=== PATIENT | female | born 1995 | race Caucasian/White ===

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

== ENCOUNTER 2017-01-18 14:51 | Emergency (ER) | payer OTHER ==
[2017-01-18] MEDS ORDERED: HYDROCODONE/ACETAMINOPHEN 5-325 MG TABLET PO ONE (15:58)
[2017-01-18] MEDS ORDERED: IBUPROFEN 600 MG TABLET PO ONE (15:58)
--- NOTE | 2017-01-18 16:30 | ER Document Report ---
ED GI/ - General Chief Complaint: Flank Pain Stated Complaint: FLANK PAIN Time Seen by Provider: 01/18/17 15:55 Notes: The patient is a 21-year-old female, PMHx scoliosis and chronic back pain, who presents with worsening bilateral flank pain, worse on the right for the past few weeks. She was diagnosed with pyelonephritis last month and finished her Abx course, but the pain never resolved. Patient is also having dysuria and is taking AZO for the dysuria. She denies nausea, vomiting, fevers, hematuria, vaginal discharge or bleeding. TRAVEL OUTSIDE OF THE [place] IN LAST 30 DAYS: No - Related Data Allergies/Adverse Reactions: No Known Allergies Allergy (Verified 01/18/17 15:03) Past Medical History - General Information source: Patient - Social History Smoking Status: Never Smoker Chew tobacco use (# tins/day): No Frequency of alcohol use: None Drug Abuse: None Family History: Reviewed & Not Pertinent Pulmonary Medical History: Reports: Hx Asthma Renal/ Medical History: Denies: Hx Peritoneal Dialysis GI Medical History: Reports: Hx Gastroesophageal Reflux Disease Musculoskeltal Medical History: Reports Hx Musculoskeletal Trauma - Right foot fracture Traumatic Medical History: Reports: Hx Fractures - Right foot - Immunizations Immunizations up to date: Yes Hx Diphtheria, Pertussis, Tetanus Vaccination: Yes Review of Systems - Review of Systems Notes: REVIEW OF SYSTEMS: CONSTITUTIONAL: -fevers, -chills EENT: -eye pain, -difficulty swallowing, -nasal congestion CARDIOVASCULAR:-chest pain, -syncope. RESPIRATORY: -cough, -SOB GASTROINTESTINAL: -abdominal pain, - nausea, -vomiting, -diarrhea GENITOURINARY: +dysuria, -hematuria MUSCULOSKELETAL: +back pain, -neck pain SKIN: -rash or skin lesions. HEMATOLOGIC: -easy bruising or bleeding. LYMPHATIC: -swollen, enlarged glands. NEUROLOGICAL: -altered mental status or loss of consciousness, -headache, - neurologic symptoms PSYCHIATRIC: -anxiety, -depression. ALL OTHER SYSTEMS REVIEWED AND NEGATIVE. Physical Exam - Vital signs Vitals: Temp Pulse Resp BP Pulse Ox 98.5 F 101 H 20 117/74 97 01/18/17 15:03 01/18/17 15:03 01/18/17 15:03 01/18/17 15:03 01/18/17 15:03 - Notes Notes: PHYSICAL EXAMINATION: GENERAL: Well-appearing, well-nourished and in no acute distress. HEAD: Atraumatic, normocephalic. EYES: Pupils equal round and reactive to light, extraocular movements intact, sclera anicteric, conjunctiva are normal. ENT: nares patent, oropharynx clear without exudates. Moist mucous membranes. NECK: Normal range of motion, supple without lymphadenopathy LUNGS: Breath sounds clear to auscultation bilaterally and equal. No wheezes rales or rhonchi. HEART: Regular rate and rhythm without murmurs ABDOMEN: Soft, nontender, normoactive bowel sounds. No guarding, no rebound. No masses appreciated. EXTREMITIES: Normal range of motion, no pitting or edema. No cyanosis. BACK: B/L CVA tenderness, no midline back pain NEUROLOGICAL: Cranial nerves grossly intact. Normal speech, normal gait. Normal sensory and motor exams. PSYCH: Normal mood, normal affect. SKIN: Warm, Dry, normal turgor, no rashes or lesions noted. Course - Re-evaluation Re-evalutation: Patient appears well. Her urine has positive nitrates but only 1 WBC. With her dysuria and CVA tenderness, provided her with a prescription for Keflex for possible pyelonephritis. However, told her to take NSAIDs due to high suspicion for muscle strain due to her scoliosis. If the NSAIDs did not help then she may take the Keflex. Given strict return precautions and she understands. - Vital Signs Vital signs: Temp Pulse Resp BP Pulse Ox 97.5 F 63 20 131/66 H 100 01/18/17 17:32 01/18/17 17:32 01/18/17 17:32 01/18/17 17:32 01/18/17 17:32 - Laboratory Laboratory results interpreted by me: 01/18/17 15:58 Urine Protein 100 H Urine Glucose (UA) 50 H Urine Nitrite POSITIVE H Urine Urobilinogen 2.0 H Discharge - Discharge Clinical Impression: Flank pain Condition: Stable Disposition: HOME, SELF-CARE Additional Instructions: Flank Pain We weren't able to prove an exact cause for your flank pain. Pain in the flank can be caused by a muscle strain or spasm. Sometimes a kidney stone causes pain, but can't be found on our tests. Infection in the kidney should be evident on a urine test. Early shingles can occasionally cause flank pain, without the rash that proves the diagnosis. On rare occasions, disease of the pancreas, aorta, spleen, or colon can create pain in the flank. At this time, there's no evidence of a dangerous condition, and it seems safe for you to be at home. If the pain goes away and does not come back, no further testing will be needed. If pain persists, or becomes more severe, we may need to repeat some tests or order additional new testing. Blood in the urine, urgency to urinate frequently, and pain that radiates to the groin can indicate a kidney stone. Fever may mean that the pain is due to infection, either of the kidney or the colon (diverticulitis). If your pain is early shingles, you should develop an eruption of blisters in the painful area within a few days. Call the doctor or return if you have pain that is spreading or becoming more severe, pain that does not resolve with time, fever, or any other new symptoms. Pyelonephritis Your evaluation shows evidence of pyelonephritis. This is an infection in the kidney. Typical symptoms are fever, pain in the flank, pain on urination, and frequent urination. Many cases of pyelonephritis can be treated at home. Hospital care may be necessary for patients who are very ill, or elderly or . Pyelonephritis is treated with antibiotics. Be sure to take all the medication as prescribed. Drink plenty of liquids (about three quarts per day) . You may take acetaminophen for fever. You should feel significantly improved within two days. You should have a recheck of your urine in about one week to insure that the infection is gone. Return for a re-examination if your symptoms worsen in any way -- such as high fever, shaking chills, severe weakness or dizziness, severe pain, or inability to pass your urine. Prescriptions: Cephalexin Monohydrate [Keflex 500 mg Capsule] 500 mg PO Q8H 10 Days capsule Naproxen [Naprosyn 250 mg Tablet] 500 mg PO BID PRN #30 tablet PRN Reason: Referrals: RENATE ANTONIO MD [Primary Care Provider] - Follow up as needed
[2017-01-18 16:53] LABS: APPEARANCE,URINE CLOUDY; BILIRUBIN,URINE NEGATIVE (NEGATIVE); GLUCOSE, URINE 50 mg/dL (NEGATIVE); KETONES,URINE NEGATIVE (NEGATIVE); LEUKOCYTE ESTERASE,URINE NEGATIVE (NEGATIVE); NITRITE,URINE POSITIVE (NEGATIVE); PROTEIN,URINE 100 mg/dL (NEGATIVE); URINE SPECIFIC GRAVITY 1.032
[2017-01-18 17:33] VITALS: BP 131/66
== END 2017-01-18 17:36 | disposition home or self-care (01) ==
LOC: ER 14:51
DX: R10.9 Unspecified abdominal pain (principal); R30.0 Dysuria; J45.909 Unspecified asthma, uncomplicated; M41.9 Scoliosis, unspecified; Z87.440 Personal history of urinary (tract) infections
CPT/HCPCS: 81001; 81025; 99284

== ENCOUNTER 2017-07-27 13:33 | Emergency (ER) | payer OTHER ==
[2017-07-27] MEDS ORDERED: LIDOCAINE 1% INJ-PF (10 MG/ML) 30 ML SDV INJ ONE (15:06)
[2017-07-27] MEDS ORDERED: CEFTRIAXONE INJ 250 MG VIAL IM ONE (15:06)
[2017-07-27] MEDS ORDERED: AZITHROMYCIN 250 MG TABLET PO ONE (15:06)
[2017-07-27 15:21] LABS: APPEARANCE,URINE SLIGHTLY-CLOUDY; BILIRUBIN,URINE NEGATIVE (NEGATIVE); COLOR,URINE YELLOW; GLUCOSE, URINE NEGATIVE (NEGATIVE); KETONES,URINE NEGATIVE (NEGATIVE); LEUKOCYTE ESTERASE,URINE SMALL (NEGATIVE); NITRITE,URINE NEGATIVE (NEGATIVE); PROTEIN,URINE NEGATIVE (NEGATIVE); URINE SPECIFIC GRAVITY 1.025; UROBILINOGEN,URINE NEGATIVE mg/dL (<2.0)
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
[2017-07-27 15:36] LABS: T.VAGINALIS (WET MOUNT) NO TRICHOMONAS SEEN; WBCS (WET MOUNT) RARE WBCS SEEN; YEAST (WET MOUNT) NO YEAST SEEN
--- NOTE | 2017-07-27 15:53 | ER Document Report ---
ED GI/ - General Chief Complaint: STD Exposure Stated Complaint: STD CHECK Time Seen by Provider: 07/27/17 14:19 Mode of Arrival: Ambulatory Information source: Patient TRAVEL OUTSIDE OF THE [place] IN LAST 30 DAYS: No - HPI Patient complains to provider of: Vaginal discharge Onset: Yesterday - Related Data Allergies/Adverse Reactions: No Known Allergies Allergy (Verified 07/27/17 13:36) Past Medical History - Social History Smoking Status: Unknown if Ever Smoked Chew tobacco use (# tins/day): No Frequency of alcohol use: None Family History: Reviewed & Not Pertinent Patient has suicidal ideation: No Patient has homicidal ideation: No Pulmonary Medical History: Reports: Hx Asthma Renal/ Medical History: Denies: Hx Peritoneal Dialysis GI Medical History: Reports: Hx Gastroesophageal Reflux Disease Musculoskeltal Medical History: Reports Hx Musculoskeletal Trauma - Right foot fracture Traumatic Medical History: Reports: Hx Fractures - Right foot - Immunizations Immunizations up to date: Yes Hx Diphtheria, Pertussis, Tetanus Vaccination: Yes Physical Exam - Vital signs Vitals: Temp Pulse Resp BP Pulse Ox 98.1 F 70 18 124/72 99 07/27/17 13:40 07/27/17 13:40 07/27/17 13:40 07/27/17 13:40 07/27/17 13:40 Course - Vital Signs Vital signs: Temp Pulse Resp BP Pulse Ox 98.1 F 70 18 124/72 99 07/27/17 13:40 07/27/17 13:40 07/27/17 13:40 07/27/17 13:40 07/27/17 13:40
[2017-07-27 16:16] VITALS: BP 115/67
[2017-07-27 17:00] LABS: CHLAM PCR NOT DETECTED (NOT DETECT); GON PCR NOT DETECTED (NOT DETECT)
== END 2017-07-27 16:17 | disposition home or self-care (01) ==
LOC: ER 13:33
DX: N89.8 Other specified noninflammatory disorders of vagina (principal); Z20.2 Contact with and (suspected) exposure to infections with a predominantly sexual mode of transmission; J45.909 Unspecified asthma, uncomplicated; R10.819 Abdominal tenderness, unspecified site; R03.0 Elevated blood-pressure reading, without diagnosis of hypertension
CPT/HCPCS: 99283; 96372; 87210; 81025; 81001; 87491; 87591; J3490; J0696

== ENCOUNTER 2017-10-12 22:14 | Emergency (ER) | payer OTHER ==
--- NOTE | 2017-10-13 00:05 | ER Document Report ---
ED Medical Screen (RME) - General Chief Complaint: Abdominal Pain Stated Complaint: ABDOMINAL PAIN Time Seen by Provider: 10/13/17 00:02 Mode of Arrival: Ambulatory Information source: Patient Notes: Patient is a 22-year-old who presents to the ER today approximately 8 weeks for sharp abdominal pains 1 week on both sides of her abdomen, nausea, vomiting, chills. Patient states whenever she gets the nausea and vomiting it feels like "I have the flu." Patient states she took her temperature this morning it was 102F. She denies any vaginal bleeding or abnormal vaginal discharge, cough, diarrhea or other sick symptoms. TRAVEL OUTSIDE OF THE [place] IN LAST 30 DAYS: No - Related Data Allergies/Adverse Reactions: No Known Allergies Allergy (Verified 07/27/17 13:36) Past Medical History - General Information source: Patient Pulmonary Medical History: Reports: Hx Asthma Renal/ Medical History: Denies: Hx Peritoneal Dialysis GI Medical History: Reports: Hx Gastroesophageal Reflux Disease Musculoskeltal Medical History: Reports Hx Musculoskeletal Trauma - Right foot fracture Traumatic Medical History: Reports: Hx Fractures - Right foot - Immunizations Immunizations up to date: Yes Hx Diphtheria, Pertussis, Tetanus Vaccination: Yes Review of Systems - Review of Systems Gastrointestinal: See HPI Female Genitourinary: See HPI Physical Exam - Vital signs Vitals: Temp Pulse Resp BP Pulse Ox 98.5 F 89 18 121/69 98 10/12/17 22:51 10/12/17 22:51 10/12/17 22:51 10/12/17 22:51 10/12/17 22:51 - Notes Notes: PHYSICAL EXAMINATION: GENERAL: Well-appearing and in no acute distress. ABDOMEN: Soft, no tenderness. No guarding, no rebound Course - Vital Signs Vital signs: Temp Pulse Resp BP Pulse Ox 98.5 F 89 18 121/69 98 10/12/17 22:51 10/12/17 22:51 10/12/17 22:51 10/12/17 22:51 10/12/17 22:51
[2017-10-13 00:56] LABS: ABSOLUTE BASOPHILS # (AUTO) 0.1 10^3/uL (0.0-0.2); ABSOLUTE EOSINOPHILS # (AUTO) 0.1 10^3/uL (0.0-0.6); ABSOLUTE LYMPHOCYTES (AUTO) 3.2 10^3/uL (0.5-4.7); ABSOLUTE MONOCYTES (AUTO) 0.6 10^3/uL (0.1-1.4); ABSOLUTE NEUT (AUTO) 4.8 10^3/uL (1.7-8.2); BASOPHILS % (AUTO) 0.6 % (0-2); EOSINOPHILS % (AUTO) 1.5 % (0-6); HEMOGLOBIN 14.1 g/dL (12.0-15.5); LYMPHOCYTES % (AUTO) 36.2 % (13-45); MEAN CORPUSCULAR HEMOGLOBIN 30.9 pg (27.0-33.4); MEAN CORPUSCULAR HGB CONC 34.5 g/dL (32.0-36.0); MEAN CORPUSCULAR VOLUME 90 fl (80-97); MONOCYTES % (AUTO) 7.2 % (3-13); PLATELET COUNT 296 10^3/uL (150-450); RED BLOOD COUNT 4.58 10^6/uL (3.72-5.28); RED CELL DISTRIBUTION WIDTH 12.9 % (11.5-14.0); SEGMENTED NEUTROPHILS % (AUTO) 54.5 % (42-78); TOTAL CELLS COUNTED % (AUTO) 100 %; WHITE BLOOD COUNT 8.8 10^3/uL (4.0-10.5)
[2017-10-13 00:57] LABS: APPEARANCE,URINE SLIGHTLY-CLOUDY; BILIRUBIN,URINE NEGATIVE (NEGATIVE); COLOR,URINE YELLOW; GLUCOSE, URINE NEGATIVE (NEGATIVE); KETONES,URINE 20 mg/dL (NEGATIVE); LEUKOCYTE ESTERASE,URINE NEGATIVE (NEGATIVE); NITRITE,URINE NEGATIVE (NEGATIVE); PROTEIN,URINE NEGATIVE (NEGATIVE); UROBILINOGEN,URINE NEGATIVE mg/dL (<2.0)
[2017-10-13 01:12] LABS: ALANINE AMINOTRANSFERASE 30 U/L (9-52); ALBUMIN 4.5 g/dL (3.5-5.0); ALKALINE PHOSPHATASE 61 U/L (38-126); ANION GAP 13 (5-19); ASPARTATE AMINO TRANSFERASE 22 U/L (14-36); BILIRUBIN,DIRECT 0.3 mg/dL (0.0-0.4); BILIRUBIN,TOTAL 0.5 mg/dL (0.2-1.3); BLOOD UREA NITROGEN 13 mg/dL (7-20); CALCIUM 10.1 mg/dL (8.4-10.2); CARBON DIOXIDE 25 mmol/L (22-30); CHLORIDE 104 mmol/L (98-107); GLUCOSE 76 mg/dL (75-110); LIPASE 38.5 U/L (23-300); POTASSIUM 4.3 mmol/L (3.6-5.0); SODIUM 142.1 mmol/L (137-145); TOTAL PROTEIN 7.4 g/dL (6.3-8.2)
--- NOTE | 2017-10-13 02:14 | RADIOLOGY REPORT (SQ) ---
EXAM DESCRIPTION: First trimester obstetrical ultrasound CLINICAL HISTORY: 22 years Female, , sharp abd pains, n/v fever? LMP 08/15/2017 COMPARISON: None. TECHNIQUE: Complete first trimester obstetrical ultrasound with transvaginal imaging. FINDINGS: The uterus measures 10.9 x 6.2 x 8.7 cm. Cervical length of 2.8 cm. Within the uterus there is a single gestational sac. pole is identified with a crown-rump length of 1.90 cm compatible with an estimated gestational age of 8 weeks, 3 days. heart rate of 185 bpm. No myometrial abnormalities. Estimated delivery date of 05/22/2018. The right ovary measures 3.1 x 1.8 x 2.5 cm. The left ovary is not identified. No large adnexal masses. No definite free pelvic fluid. IMPRESSION: 1. Single live intrauterine with estimated gestational age of 8 weeks, 3 days. Estimated delivery date of 05/22/2018. 2. heart rate of 185 beats for minute. This is compatible with tachycardia. Continued close clinical, laboratory, and sonographic follow-up recommended.
[2017-10-13] MEDS ORDERED: ONDANSETRON 4 MG TAB.RAPDIS PO ONE (02:23)
--- NOTE | 2017-10-13 02:24 | ER Document Report ---
ED GI/ - General Chief Complaint: Abdominal Pain Stated Complaint: ABDOMINAL PAIN Time Seen by Provider: 10/13/17 00:02 Mode of Arrival: Ambulatory Information source: Patient Notes: Patient is a 22-year-old who presents to the ER today approximately 8 weeks for sharp abdominal pains 1 week on both sides of her abdomen, nausea, vomiting, chills. Patient states whenever she gets the nausea and vomiting it feels like "I have the flu." Patient states she took her temperature this morning it was 102F. She denies any vaginal bleeding or abnormal vaginal discharge, cough, diarrhea or other sick symptoms. TRAVEL OUTSIDE OF THE [place] IN LAST 30 DAYS: No - Related Data Allergies/Adverse Reactions: No Known Allergies Allergy (Verified 07/27/17 13:36) Past Medical History - General Information source: Patient - Social History Smoking Status: Unknown if Ever Smoked Family History: Reviewed & Not Pertinent Patient has suicidal ideation: No Patient has homicidal ideation: No Pulmonary Medical History: Reports: Hx Asthma Renal/ Medical History: Denies: Hx Peritoneal Dialysis GI Medical History: Reports: Hx Gastroesophageal Reflux Disease Musculoskeltal Medical History: Reports Hx Musculoskeletal Trauma - Right foot fracture Traumatic Medical History: Reports: Hx Fractures - Right foot - Immunizations Immunizations up to date: Yes Hx Diphtheria, Pertussis, Tetanus Vaccination: Yes Physical Exam - Vital signs Vitals: Temp Pulse Resp BP Pulse Ox 98.5 F 89 18 121/69 98 10/12/17 22:51 10/12/17 22:51 10/12/17 22:51 10/12/17 22:51 10/12/17 22:51 - Notes Notes: PHYSICAL EXAMINATION: GENERAL: well appearing, in no acute distress. HEAD: Atraumatic, normocephalic. EYES: Pupils equal round and reactive to light, extraocular movements intact, sclera anicteric, conjunctiva are normal. ENT: ear canals without erythema or foreign body, TMs pearly clancy with good bony landmarks, nares patent, oropharynx clear without exudates. Moist mucous membranes. Airway patent NECK: Normal range of motion, supple without lymphadenopathy LUNGS: CTAB and equal. No wheezes rales or rhonchi. HEART: Regular rate and rhythm without murmurs ABDOMEN: Soft, no tenderness. No guarding, no rebound BACK: no vertebral tenderness, normal ROM GI/: no CVA tenderness EXTREMITIES: Normal range of motion, no pitting edema. No cyanosis. NEUROLOGICAL: Cranial nerves grossly intact. Normal sensory/motor exams. SKIN: Warm, Dry, normal turgor, no rash Course - Re-evaluation Re-evalutation: 10/13/17 06:56 labwork unremarkable, HCG positive, US reports 8 week gestation in the uterus, no ectopic, some tachycardia at 185bpm, pt has been vomiting a lot and unable to keep down fluids prior to arrival, pt kept down crackers and fluids after zofran. - Vital Signs Vital signs: Temp Pulse Resp BP Pulse Ox 98.7 F 72 16 114/55 L 99 10/13/17 03:39 10/13/17 03:39 10/13/17 03:39 10/13/17 03:39 10/13/17 03:39 - Laboratory Result Diagrams: 10/13/17 00:39 10/13/17 00:39 Laboratory results interpreted by me: 10/13/17 10/13/17 00:39 00:39 Beta HCG, Quant 301861.00 H Urine Ketones 20 H Discharge - Discharge Clinical Impression: Nausea/vomiting in Condition: Stable Disposition: HOME, SELF-CARE Instructions: Vomiting ([facility]) Additional Instructions: Return immediately for any new or worsening symptoms. Follow up with primary care provider, call tomorrow to make followup appointment. Prescriptions: Ondansetron [Zofran Odt 4 mg Tablet] 1 - 2 tab PO Q4H PRN #30 tab.rapdis PRN Reason: For Nausea/Vomiting Forms: Return to Work Referrals: ROCIO JAY PA [Primary Care Provider] - Follow up as needed [facility] [Provider Group] - Follow up as needed
[2017-10-13 03:40] VITALS: BP 114/55
== END 2017-10-13 03:40 | disposition home or self-care (01) ==
LOC: ER 22:14
DX: O21.9 Vomiting of pregnancy, unspecified (principal); O36.8310 Maternal care for abnormalities of the fetal heart rate or rhythm, first trimester, not applicable or unspecified; O26.891 Other specified pregnancy related conditions, first trimester; R10.9 Unspecified abdominal pain; R68.83 Chills (without fever); O99.511 Diseases of the respiratory system complicating pregnancy, first trimester; J45.909 Unspecified asthma, uncomplicated; Z3A.08 8 weeks gestation of pregnancy
CPT/HCPCS: 99284; 36415; 84702; 83690; 85025; 80053; 81001; 76801; S0119

== ENCOUNTER 2017-11-09 16:58 | Emergency (ER) | payer OTHER ==
--- NOTE | 2017-11-09 18:18 | ER Document Report ---
ED Medical Screen (RME) - General Chief Complaint: Urinary Problem Stated Complaint: URINATION PAIN Time Seen by Provider: 11/09/17 18:12 Notes: RAPID MEDICAL EVALUATION DISCLOSURE I have seen this patient as part of a Rapid Medical Evaluation and, if applicable, placed any initially appropriate orders. The patient will be seen and fully evaluated, including a full history and physical exam, by a provider ( in Main ED or Fast Track) when a room becomes available. 22-year-old female approximately 12 weeks gestation here with complaints of left lower back pain, white vaginal discharge, dysuria and frequency ongoing for the past 1-2 days. She states this feels like her previous miscarriages, of which she has had 2 thus far. She does not currently have any abdominal pain. TRAVEL OUTSIDE OF THE [place] IN LAST 30 DAYS: No - Related Data Allergies/Adverse Reactions: No Known Allergies Allergy (Verified 11/09/17 18:03) Past Medical History Pulmonary Medical History: Reports: Hx Asthma Renal/ Medical History: Denies: Hx Peritoneal Dialysis GI Medical History: Reports: Hx Gastroesophageal Reflux Disease Musculoskeltal Medical History: Reports Hx Musculoskeletal Trauma - Right foot fracture Traumatic Medical History: Reports: Hx Fractures - Right foot - Immunizations Immunizations up to date: Yes Hx Diphtheria, Pertussis, Tetanus Vaccination: Yes Physical Exam - Vital signs Vitals: Temp Pulse Resp BP Pulse Ox 98.4 F 79 18 116/58 L 100 11/09/17 17:05 11/09/17 17:05 11/09/17 17:05 11/09/17 17:05 11/09/17 17:05 Course - Vital Signs Vital signs: Temp Pulse Resp BP Pulse Ox 98.4 F 79 18 116/58 L 100 11/09/17 17:05 11/09/17 17:05 11/09/17 17:05 11/09/17 17:05 11/09/17 17:05 Doctor's Discharge - Discharge Referrals: ROCIO JAY PA [Primary Care Provider] - Follow up as needed
--- NOTE | 2017-11-09 20:17 | ER Document Report ---
HPI - HPI Patient complains to provider of: Vaginal discharge, pruritus, urinary frequency Onset: Other - 3 days Onset/Duration: Persistent Quality of pain: Burning Pain Level: 3 Context: Patient presents complaining of vaginal discharge with itching. Patient also reports urinary frequency and dysuria. Patient is currently 12 weeks G3. Patient has not had any care due to difficulty with her insurance. Associated Symptoms: Other - Urinary frequency, vaginal discharge. denies: Fever, Nausea, Vomiting Exacerbated by: Denies Relieved by: Denies Similar symptoms previously: No Recently seen / treated by doctor: No - ROS ROS below otherwise negative: Yes Systems Reviewed and Negative: Yes All other systems reviewed and negative - CONSTITUTIONAL Constitutional: DENIES: Fever - URINARY Urinary: REPORTS: Dysuria, Frequency - REPRODUCTIVE Reproductive: REPORTS: Abnormal bleeding / discharge. DENIES: : - MUSCULOSKELETAL Musculoskeletal: DENIES: Back Pain - DERM Skin Color: Normal Skin Problems: None Past Medical History - General Information source: Patient Last Menstrual Period: August 15 - Social History Smoking Status: Never Smoker Chew tobacco use (# tins/day): No Frequency of alcohol use: None Drug Abuse: None Occupation: Retail Lives with: Spouse/Significant other Family History: Reviewed & Not Pertinent Patient has suicidal ideation: No Patient has homicidal ideation: No Pulmonary Medical History: Reports: Hx Asthma Renal/ Medical History: Denies: Hx Peritoneal Dialysis GI Medical History: Reports: Hx Gastroesophageal Reflux Disease Musculoskeltal Medical History: Reports Hx Musculoskeletal Trauma - Right foot fracture Traumatic Medical History: Reports: Hx Fractures - Right foot Past Surgical History: Reports: Hx Oral Surgery - wisdom - Immunizations Immunizations up to date: Yes Hx Diphtheria, Pertussis, Tetanus Vaccination: Yes Vertical Provider Document - CONSTITUTIONAL Agree With Documented VS: Yes Exam Limitations: No Limitations General Appearance: WD/WN, No Apparent Distress - INFECTION CONTROL TRAVEL OUTSIDE OF THE [place] IN LAST 30 DAYS: No - HEENT HEENT: Atraumatic, Normocephalic - NECK Neck: Normal Inspection, Supple - RESPIRATORY Respiratory: Breath Sounds Normal, No Respiratory Distress - CARDIOVASCULAR Cardiovascular: Regular Rate, Regular Rhythm, No Murmur - GI/ABDOMEN Gastrointestinal: Abdomen Soft, Abdomen Non-Tender, No Organomegaly, Normal Bowel Sounds - BACK Back: Normal Inspection. negative: CVA Tenderness-Right, CVA Tenderness-Left Notes: Left lateral side tenderness - MUSCULOSKELETAL/EXTREMETIES Musculoskeletal/Extremeties: BETTY BERG - NEURO Level of Consciousness: Awake, Alert, Appropriate Motor/Sensory: No Motor Deficit - DERM Integumentary: Warm, Dry Course - Re-evaluation Re-evalutation: 11/10/17 Patient with findings consistent with vaginal candidiasis. Patient also has some urinary discomfort symptoms. Will treat for possible UTI as well as vaginal candidiasis. Urine culture will be performed. Patient encouraged to follow-up with an [facility] to establish care. - Vital Signs Vital signs: Temp Pulse Resp BP Pulse Ox 98.4 F 79 18 116/58 L 100 11/09/17 17:05 11/09/17 17:05 11/09/17 17:05 11/09/17 17:05 11/09/17 17:05 - Laboratory Laboratory results interpreted by me: 11/09/17 18:20 Urine HCG, Qual POSITIVE H 11/09/17 21:23 Labs- Entire Visit 11/09/17 11/09/17 11/09/17 18:20 18:20 20:45 Urine Color YELLOW Urine Appearance TURBID Urine pH 5.0 Ur Specific [place] 1.031 Urine Protein NEGATIVE Urine Glucose (UA) NEGATIVE Urine Ketones NEGATIVE Urine Blood NEGATIVE Urine Nitrite NEGATIVE Urine Bilirubin NEGATIVE Urine Urobilinogen 4.0 H Ur Leukocyte Esterase MODERATE H Urine WBC (Auto) 1 Urine RBC (Auto) 1 Urine Bacteria (Auto) TRACE Squamous Epi Cells Auto 1 Calcium Oxalate Cr Auto RARE Urine Mucus (Auto) FEW Urine Ascorbic Acid NEGATIVE Urine HCG, Qual POSITIVE H Bacteria (Wet Prep) 4+ BACTERIA SEEN Trichomonas (Wet Prep) NO TRICHOMONAS SEEN Vaginal WBC 3+ WBCS SEEN Vaginal Yeast YEAST SEEN Discharge - Discharge Clinical Impression: Vagina, candidiasis UTI (urinary tract infection) Qualifiers: Urinary tract infection type: site unspecified Hematuria presence: without hematuria Qualified Code(s): N39.0 - Urinary tract infection, site not specified Qualifiers: Weeks of gestation: 12 weeks Qualified Code(s): Z3A.12 - 12 weeks gestation of Condition: Stable Disposition: HOME, SELF-CARE Instructions: Cephalexin ([facility]), Urinary Tract Infection ([facility]), Vaginal Yeast Infection ([facility]) Additional Instructions: Return immediately for any new or worsening symptoms Followup with your primary care provider, call tomorrow to make a followup appointment Prescriptions: Clotrimazole [Clotrimazole-7] 1 applic VG QHS #1 cream.appl Cephalexin Monohydrate [Keflex 500 mg Capsule] 500 mg PO Q6H 5 Days capsule Forms: Return to Work Referrals: ROCIO JAY PA [Primary Care Provider] - Follow up as needed [facility] [Provider Group] - Follow up as needed
[2017-11-09 20:23] LABS: APPEARANCE,URINE TURBID; BILIRUBIN,URINE NEGATIVE (NEGATIVE); CALCIUM OXALATE CRYSTALS,URINE RARE /HPF; COLOR,URINE YELLOW; GLUCOSE, URINE NEGATIVE (NEGATIVE); KETONES,URINE NEGATIVE (NEGATIVE); LEUKOCYTE ESTERASE,URINE MODERATE (NEGATIVE); NITRITE,URINE NEGATIVE (NEGATIVE); PROTEIN,URINE NEGATIVE (NEGATIVE); URINE SPECIFIC GRAVITY 1.031
--- NOTE | 2017-11-09 20:40 | RADIOLOGY REPORT (SQ) ---
EXAM DESCRIPTION: U/S OB TRANSVAGINAL W/O DOP COMPLETED DATE/TIME: 11/09/2017 7:41 pm REASON FOR STUDY: vag bleeding L back pain COMPARISON: 10/13/2017 TECHNIQUE: Transvaginal and transabdominal static and realtime grayscale images acquired of the pelv is. Additional selected spectral and color Doppler images recorded. All images stored on PACs. CG: Not available. CLINICAL DATES: LMP 08/15/2017. 12 weeks 2 days. LIMITATIONS: None. FINDINGS: FETUS: Living intrauterine . ULTRASOUND EGA: 12 weeks 5 days ULTRASOUND NEW: 05/19/2018 CRL: 6.3 cm FHR: 163 beats per minute. SUBCHORIONIC BLEED: No SIZE OF BLEED: Not applicable. UTERUS: No masses or anomalies. 11.5 x 7.8 x 10.5 cm. CERVICAL LENGTH: 4 cm. Closed. RIGHT ADNEXA: Ovary not seen. No adnexal free fluid. No adnexal masses. LEFT ADNEXA: Ovary not seen. No adnexal free fluid. No adnexal masses. FREE FLUID: None. OTHER: No other significant finding. IMPRESSION: LIVING INTRAUTERINE . EGA 12 weeks 5 days Trimester of : First - 0 to 13 weeks. TECHNICAL DOCUMENTATION: JOB ID: [id number] [employer]- All Rights Reserved rev-10/01 Reading location - IP/workstation name: [email or web address]
[2017-11-09] MEDS ORDERED: CEFTRIAXONE INJ 1000 MG VIAL IM ONE (20:56)
[2017-11-09] MEDS ORDERED: AZITHROMYCIN 250 MG TABLET PO ONE (20:56)
[2017-11-09 21:01] LABS: BACTERIA (WET MOUNT) 4+ BACTERIA SEEN; T.VAGINALIS (WET MOUNT) NO TRICHOMONAS SEEN; WBCS (WET MOUNT) 3+ WBCS SEEN; YEAST (WET MOUNT) YEAST SEEN
[2017-11-09 22:18] VITALS: BP 121/81
[2017-11-09 22:27] LABS: CHLAM PCR NOT DETECTED (NOT DETECT); GON PCR NOT DETECTED (NOT DETECT)
== END 2017-11-09 22:10 | disposition home or self-care (01) ==
LOC: ER 16:58
DX: O23.41 Unspecified infection of urinary tract in pregnancy, first trimester (principal); O09.31 Supervision of pregnancy with insufficient antenatal care, first trimester; O98.811 Other maternal infectious and parasitic diseases complicating pregnancy, first trimester; B37.3 Candidiasis of vulva and vagina; L29.2 Pruritus vulvae; Z3A.12 12 weeks gestation of pregnancy
CPT/HCPCS: 99284; 96372; 87086; 87210; 81025; 87088; 81001; 87491; 87591; 76817; J0696